=== PATIENT | female | born 1985 | race Caucasian/White ===

== ENCOUNTER 2020-10-30 23:59 | Emergency (ER) | payer MEDICAID ==
[~2020-10-30] VITALS: Ht 172.7 cm; Wt 79.4 kg
[2020-10-31 00:08] VITALS: BP 132/89
--- NOTE | 2020-10-31 00:08 | NUR ---
TO BED AMBULATORY
--- NOTE | 2020-10-31 00:59 | NUR ---
PT BIB SELF FOR C/O 11/14 RIGHT HEEL PAIN WHEN AMBULATING. PT STATES HER RIGHT HEEL HURTS WHEN WALKING BAREFOOT, HOWEVER DOES NOT HURT WHEN SHE WEARS SUPPORTIVE SHOES LIKE CROCS. PT REPORTS MILD PAIN RELIEF WITH TYLENOL. PT ALSO REPORTS APPLYING ICY HOT PATCH TO RIGHT HEEL WITH CONCERNS OF BLUE/GREEN DISCOLORATION POST APPLICATION. UPON VISUAL ASSESSMENT, PT NOTED TO HAVE BLUE/GREEN COLORING ON RIGHT HEEL, HOWEVER ABLE TO BE REMOVED WITH USE OF ALCOHOL PAD WITHOUT DIFFICULTY. PT STILL REPORTING CONCERN OF BLOOD CLOT AND DECREASED CIRCULATION. CAP REFILL <3 SECONDS, SKIN IS WARM/DRY/PINK, DENIES NUMBNESS OR TINGLING, PEDAL PULSES EQUAL AND STRONG BILATERALLY. MED HX: ANEMIA ALLERGIES: NKA
--- NOTE | 2020-10-31 02:22 | NUR ---
ERMD AT BEDSIDE.
[2020-10-31 03:05] VITALS: BP 132/89
--- NOTE | 2020-10-31 03:05 | NUR ---
Patient discharged with v/s stable. Written and verbal after care instructions given and explained. Patient verbalized understanding. Ambulatory with steady gait. All questions addressed prior to discharge. Advised to follow up with PMD.
== END 2020-10-31 03:05 | disposition home or self-care (01) ==
LOC: MED 23:59
DX: M77.31 Calcaneal spur, right foot (principal); D64.9 Anemia, unspecified
CPT/HCPCS: 73650; 99283

== ENCOUNTER 2021-01-26 09:19 | Emergency (ER) | payer MEDICAID ==
[~2021-01-26] VITALS: Ht 152.4 cm; Wt 80.7 kg
[2021-01-26 09:37] VITALS: BP 137/66
--- NOTE | 2021-01-26 10:40 | NUR ---
35/F presents to ED with c/o epigastric pain since 2am. Patient states she woke up with 7/10 epigastric pain, stating she had two episodes of vomiting around 3am. Reports taking Pepto with mild relief, states pain has been constant since. Patient denies N/V/D at this time, denies urinary symptoms, cp, sob, fever, chills or cough.
[2021-01-26] MEDS ORDERED: DICYCLOMINE HCL LIQUID 20 MG, ALUMINUM HYD/MAG/SIMETHICONE 30 ML, LIDOCAINE VISCOUS 2% ... PO ONE ×3 (11:50)
[2021-01-26] MEDS ORDERED: DICYCLOMINE HCL LIQUID 10 MG/5 ML UDC ONE (11:54)
[2021-01-26] MEDS ORDERED: ALUMINUM HYD/MAG/SIMETHICONE 30 ML UDC ONE (11:54)
[2021-01-26 11:58] LABS: BASOPHILS % (AUTO) 0.3 % (0.0-2.0); HEMATOCRIT 41.3 % (36-48); LYMPHOCYTES # (AUTO) 0.4 K/uL (2.5-16.5); MEAN CORPUSCULAR HEMOGLOBIN 29 pg (27-31); MEAN CORPUSCULAR HGB CONC 34 g/dL (33-37); MEAN CORPUSCULAR VOLUME 86.4 fL (80-94); MONOCYTES # (AUTO) 0.2 K/uL (0.8-1.0); MONOCYTES % (AUTO) 1.7 % (1.7-9.3); NEUTROPHILS # (AUTO) 10.2 K/uL (1.8-7.7); PLATELET COUNT (AUTO) 317 K/uL (140-450); RED BLOOD CELL COUNT(AUTO) 4.78 MIL/uL (4.20-5.40); RED CELL DISTRIBUTION WIDTH 14.1 % (11.6-13.7); WHITE BLOOD COUNT (AUTO) 10.9 K/uL (4.8-10.8)
--- NOTE | 2021-01-26 12:00 | NUR ---
PATIENT APPEARS TO BE RESTING WITH EYES CLOSED. ALL NEEDS MET AT THIS TIME.
[2021-01-26 12:08] LABS: APPEARANCE,URINE CLOUDY (CLEAR); BILIRUBIN,URINE NEGATIVE (NEGATIVE); BLOOD, URINE 1+ (NEGATIVE); COLOR,URINE YELLOW (YELLOW); LEUKOCYTE ESTERASE ,URINE 1+ (NEGATIVE); NITRITE, URINE NEGATIVE (NEGATIVE); UGLUCOSE NEGATIVE (NEGATIVE)
[2021-01-26 12:12] LABS: ANION GAP 13.8 (8-16); CARBON DIOXIDE 23.9 mmol/L (21-32); CREATININE 0.7 mg/dL (0.6-1.3); POTASSIUM 3.7 mmol/L (3.5-5.1); TOTAL BILIRUBIN 0.4 mg/dL (0.0-1.0)
[2021-01-26 13:23] LABS: RBC,URINE NONE SEEN /HPF (0-5); URINE AMORPHOUS URATE 2+ /HPF (None Seen); WBC,URINE 0-5 /HPF (0-5)
[2021-01-26] MEDS ORDERED: CEPH-588 PO (14:42)
[2021-01-26 14:53] VITALS: BP 142/75
== END 2021-01-26 14:53 | disposition home or self-care (01) ==
LOC: MED 09:19
DX: R10.13 Epigastric pain (principal)
CPT/HCPCS: 36415; 80053; 81001; 81025; 82150; 83690; 85025; 87086; 99283

== ENCOUNTER 2021-02-17 10:44 | Emergency (ER) | payer MEDICAID ==
[~2021-02-17] VITALS: Ht 152.4 cm; Wt 80.3 kg
[~2021-02-17 10:44] MED LIST: CEPH-588 PO
[2021-02-17 10:49] VITALS: BP 155/92
--- NOTE | 2021-02-17 11:09 | NUR ---
35/F BIB SELF WITH C/O FOUL SMELLING URINE, LOWER BACK PAIN, URGENCY AND FATIGUE SINCE YESTERDAY. DENIES DYSURIA, FEVER OR CHILLS. PT STATES SHE WAS JUST DX WITH A UTI X1 WEEK AGO AND WAS GIVEN KEFELX. PT STATES SHE TOOK THE ENTIRE COURSE OF HER ABX, BUT STARTED TO EXPERINCE UTI SYMPTOMS AGAIN X YESTERDAY. MEDHX: DENIES ALLERGIES: DENIES
--- NOTE | 2021-02-17 11:29 | NUR ---
CLYDE HANDED TO STRATEGY EXECUTION CONSULTANT KALIE
--- NOTE | 2021-02-17 11:30 | NUR ---
SAID BEDSIDE EVALUATING PT
[2021-02-17 11:35] LABS: APPEARANCE,URINE CLEAR (CLEAR); BILIRUBIN,URINE NEGATIVE (NEGATIVE); BLOOD, URINE NEGATIVE (NEGATIVE); COLOR,URINE YELLOW (YELLOW); LEUKOCYTE ESTERASE ,URINE NEGATIVE (NEGATIVE); NITRITE, URINE NEGATIVE (NEGATIVE); UGLUCOSE NEGATIVE (NEGATIVE)
[2021-02-17] MEDS ORDERED: CEPH-588 PO (12:16)
[2021-02-17 12:25] VITALS: BP 155/92
== END 2021-02-17 12:25 | disposition home or self-care (01) ==
LOC: MED 10:44
DX: N39.0 Urinary tract infection, site not specified (principal); D64.9 Anemia, unspecified
CPT/HCPCS: 81003; 81025; 87086; 99283

== ENCOUNTER 2021-02-19 09:06 | Emergency (ER) | payer MEDICAID ==
--- NOTE | 2021-02-19 09:20 | NUR ---
PATIENT LEFT WITHOUT BEING SEEN BY DR. DURBIN. NO FURTHER CARE PROVIDED FOR PATIENT.
--- NOTE | 2021-02-19 09:20 | NUR ---
PT LEFT WITHOUT BEING TRIAGED. DR DURBIN MADE AWARE
== END 2021-02-19 09:20 | disposition left against medical advice (07) ==
LOC: MED 09:06
DX: Z53.21 Procedure and treatment not carried out due to patient leaving prior to being seen by health care provider (principal)

== ENCOUNTER 2021-02-19 22:56 | Emergency (ER) | payer MEDICAID ==
[~2021-02-19] VITALS: Ht 152.4 cm; Wt 81.2 kg
[2021-02-19 23:01] VITALS: BP 155/63
--- NOTE | 2021-02-19 23:01 | NUR ---
TO BED AMBULATORY
[2021-02-19] MEDS ORDERED: LORazepam 0.5 MG TAB PO ONE (23:20)
[2021-02-19 23:45] LABS: BASOPHILS # (AUTO) 0.1 K/uL (0.00-0.22); BASOPHILS % (AUTO) 0.8 % (0.0-2.0); EOSINOPHILS # (AUTO) 0.1 K/uL (0-0.4); EOSINOPHILS % (AUTO) 0.8 % (0.0-4.0); HEMATOCRIT 40.4 % (36-48); HEMOGLOBIN 13.3 g/dL (12.0-16.0); LYMPHOCYTES # (AUTO) 1.9 K/uL (2.5-16.5); LYMPHOCYTES % (AUTO) 26.7 % (20.5-51.1); MEAN CORPUSCULAR HEMOGLOBIN 29 pg (27-31); MEAN CORPUSCULAR HGB CONC 33 g/dL (33-37); MEAN CORPUSCULAR VOLUME 87.7 fL (80-94); MONOCYTES # (AUTO) 0.5 K/uL (0.8-1.0); MONOCYTES % (AUTO) 6.5 % (1.7-9.3); NEUTROPHILS # (AUTO) 4.6 K/uL (1.8-7.7); NEUTROPHILS % (AUTO) 65.2 % (42.2-75.2); PLATELET COUNT (AUTO) 308 K/uL (140-450); RED BLOOD CELL COUNT(AUTO) 4.61 MIL/uL (4.20-5.40); RED CELL DISTRIBUTION WIDTH 13.5 % (11.6-13.7); WHITE BLOOD COUNT (AUTO) 7.1 K/uL (4.8-10.8)
[2021-02-20 00:16] LABS: ALBUMIN 3.6 g/dL (3.4-5.0); ANION GAP 20.2 (8-16); CARBON DIOXIDE 20.1 mmol/L (21-32); CREATININE 0.8 mg/dL (0.6-1.3); POTASSIUM 3.3 mmol/L (3.5-5.1); TOTAL BILIRUBIN 0.5 mg/dL (0.0-1.0)
[2021-02-20 02:12] VITALS: BP 120/72
== END 2021-02-20 01:51 | disposition home or self-care (01) ==
LOC: MED 22:56
DX: R00.2 Palpitations (principal)
CPT/HCPCS: 36415; 80053; 84484; 85025; 93005; 99284

== ENCOUNTER 2021-02-27 17:07 | Emergency (ER) | payer MEDICAID ==
[~2021-02-27] VITALS: Ht 152.4 cm; Wt 78.0 kg
[2021-02-27 17:36] VITALS: BP 151/102
--- NOTE | 2021-02-27 17:44 | NUR ---
PT SENT TO LOBBY
[2021-02-27 18:55] LABS: BASOPHILS # (AUTO) 0.1 K/uL (0.00-0.22); BASOPHILS % (AUTO) 0.9 % (0.0-2.0); EOSINOPHILS % (AUTO) 0.6 % (0.0-4.0); HEMATOCRIT 43.1 % (36-48); HEMOGLOBIN 14.3 g/dL (12.0-16.0); LYMPHOCYTES # (AUTO) 1.5 K/uL (2.5-16.5); LYMPHOCYTES % (AUTO) 24.3 % (20.5-51.1); MEAN CORPUSCULAR HEMOGLOBIN 29 pg (27-31); MEAN CORPUSCULAR HGB CONC 33 g/dL (33-37); MEAN CORPUSCULAR VOLUME 87.8 fL (80-94); MONOCYTES # (AUTO) 0.3 K/uL (0.8-1.0); MONOCYTES % (AUTO) 5.4 % (1.7-9.3); NEUTROPHILS # (AUTO) 4.3 K/uL (1.8-7.7); NEUTROPHILS % (AUTO) 68.8 % (42.2-75.2); PLATELET COUNT (AUTO) 297 K/uL (140-450); RED BLOOD CELL COUNT(AUTO) 4.91 MIL/uL (4.20-5.40); RED CELL DISTRIBUTION WIDTH 13.4 % (11.6-13.7); WHITE BLOOD COUNT (AUTO) 6.2 K/uL (4.8-10.8)
[2021-02-27 19:01] LABS: ANION GAP 9.7 (8-16); CARBON DIOXIDE 26.9 mmol/L (21-32); CREATININE 0.7 mg/dL (0.6-1.3); POTASSIUM 3.6 mmol/L (3.5-5.1)
[2021-02-27] MEDS ORDERED: MELA10CA PO (19:24)
[2021-02-27] MEDS ORDERED: MECL-303 PO (19:24)
--- NOTE | 2021-02-27 19:51 | NUR ---
Patient discharged with v/s stable. Written and verbal after care instructions about sleep studies and dizzziness were given and explained. Patient alert, oriented and verbalized understanding of instructions. Ambulatory with steady gait. All questions addressed prior to discharge. ID band removed. Patient advised to follow up with PMD and get a referral to a specialist. Rx of Meclizine and Melatonin given. Patient educated on indication of medication including possible reaction and side effects. Patient instructed to only use the prescription as needed. Opportunity to ask questions provided and answered.
== END 2021-02-27 19:51 | disposition home or self-care (01) ==
LOC: MED 17:07
DX: R42 Dizziness and giddiness (principal); G47.00 Insomnia, unspecified
CPT/HCPCS: 36415; 80048; 85025; 99283

== ENCOUNTER 2021-02-27 22:02 | Emergency (ER) | payer MEDICAID ==
[~2021-02-27] VITALS: Ht 152.4 cm; Wt 78.0 kg
[~2021-02-27 22:02] MED LIST changes: +MECL-303 PO; +MELA10CA PO
[2021-02-27 22:22] VITALS: BP 154/90
--- NOTE | 2021-02-27 22:25 | NUR ---
TO LOBBY A/W BED AMBULATORY
--- NOTE | 2021-02-28 00:45 | NUR ---
SEEN AND EXAMINED BY KATIUSKA
[2021-02-28 01:10] VITALS: BP 128/79
== END 2021-02-28 01:10 | disposition home or self-care (01) ==
LOC: MED 22:02
DX: R42 Dizziness and giddiness (principal); Z79.899 Other long term (current) drug therapy; Z79.2 Long term (current) use of antibiotics
CPT/HCPCS: 99281

== ENCOUNTER 2021-03-23 20:16 | Emergency (ER) | payer MEDICAID ==
[~2021-03-23] VITALS: Ht 152.4 cm; Wt 75.3 kg
[2021-03-23 20:24] VITALS: BP 130/96
--- NOTE | 2021-03-23 21:32 | NUR ---
PER ARTIE, ADMIT SCAFFOLD SETTER PT LEFT FACILITY AT THIS TIME. PATIENT LEFT WITHOUT BEING SEEN BY DR. SORENSEN. NO FURTHER CARE PROVIDED FOR PATIENT.
== END 2021-03-23 21:32 | disposition left against medical advice (07) ==
LOC: MED 20:16
DX: F41.0 Panic disorder [episodic paroxysmal anxiety] (principal); Z53.21 Procedure and treatment not carried out due to patient leaving prior to being seen by health care provider

== ENCOUNTER 2021-03-23 21:57 | Emergency (ER) | payer MEDICAID ==
[~2021-03-23] VITALS: Ht 152.4 cm; Wt 70.8 kg
[2021-03-23 22:01] VITALS: BP 145/99
--- NOTE | 2021-03-23 23:25 | NUR ---
PT SEEN AND EVALUATED BY DR. MUNSON. NO NURSING INTERVENTIONS PROVIDED.
[2021-03-23 23:45] VITALS: BP 145/99
--- NOTE | 2021-03-23 23:45 | NUR ---
Patient discharged with v/s stable. Written and verbal after care instructions given and explained. Patient verbalized understanding.ARM BAND REMOVED. Ambulatory with steady gait. All questions addressed prior to discharge. Advised to follow up with PMD.
== END 2021-03-23 23:45 | disposition home or self-care (01) ==
LOC: MED 21:57
DX: R00.2 Palpitations (principal); R03.0 Elevated blood-pressure reading, without diagnosis of hypertension; Z79.899 Other long term (current) drug therapy
CPT/HCPCS: 93005; 99283

== ENCOUNTER 2021-09-09 15:44 | Emergency (ER) | payer MEDICAID ==
[~2021-09-09] VITALS: Ht 152.4 cm; Wt 76.2 kg
[2021-09-09 15:57] VITALS: BP 118/85
[2021-09-09 17:00] VITALS: BP 118/85
== END 2021-09-09 17:00 | disposition home or self-care (01) ==
LOC: MED 15:44
DX: L53.9 Erythematous condition, unspecified (principal); Z00.01 Encounter for general adult medical examination with abnormal findings; Z79.899 Other long term (current) drug therapy; Z79.2 Long term (current) use of antibiotics
CPT/HCPCS: 99281

== ENCOUNTER 2021-09-09 18:36 | Emergency (ER) | payer MEDICAID ==
[~2021-09-09] VITALS: Ht 152.4 cm; Wt 76.2 kg
[2021-09-09 18:46] VITALS: BP 139/79
[2021-09-09 19:45] VITALS: BP 139/79
== END 2021-09-09 19:45 | disposition home or self-care (01) ==
LOC: MED 18:36
DX: Z00.00 Encounter for general adult medical examination without abnormal findings (principal); Z79.899 Other long term (current) drug therapy; Z79.2 Long term (current) use of antibiotics
CPT/HCPCS: 81002; 81025; 99281; 99282

== ENCOUNTER 2021-11-29 14:38 | Emergency (ER) | payer MEDICAID ==
[~2021-11-29] VITALS: Ht 152.4 cm; Wt 72.7 kg
[2021-11-29 14:50] VITALS: BP 129/79
--- NOTE | 2021-11-29 14:57 | NUR ---
PT AMBULATED TO BATHROOM WITH STEADY GAIT
--- NOTE | 2021-11-29 15:02 | NUR ---
36 Y/O FEMALE C/O L PELVIC/LLQ ABDOMINAL SHARP PAIN 08/15 X2 MONTHS. DENIES N/V/D. LMP 11/21/21. DENIES VAGINAL BLEEDING/DYSURIA. PER PT THE PELVIC PAIN IS CONSTANT AND THE LLQ ABD PAIN GETS WORSE WHEN SHE IS BENDING DOWN PMH:ANEMIA NKDA MEDS:DENIES
--- NOTE | 2021-11-29 16:39 | NUR ---
YELENA AT BEDSIDE
[2021-11-29] MEDS ORDERED: IBUP-2213 PO (18:41)
[2021-11-29 18:50] VITALS: BP 142/90
== END 2021-11-29 18:50 | disposition home or self-care (01) ==
LOC: MED 14:38
DX: N83.201 Unspecified ovarian cyst, right side (principal)
CPT/HCPCS: 76830; 81002; 81025; 99284; Q0092

== ENCOUNTER 2021-12-11 14:55 | Emergency (ER) | payer MEDICAID ==
[~2021-12-11] VITALS: Ht 152.4 cm; Wt 73.5 kg
[~2021-12-11 14:55] MED LIST changes: +IBUP-2213 PO
[2021-12-11 15:11] VITALS: BP 127/63
--- NOTE | 2021-12-11 15:30 | NUR ---
36 Y/O FEMALE BIB SELF C/O OF LEFT KNEE PAIN X 1 MONTH. PER PT SHE WENT TO HER PHYSICIAN AND WAS IN THE PROCESS TO HAVE A CHECK UP BUT WAS BEING HELD UP BY INSURANCE. PT IS ABLE TO AMBULATE. DENIES ANY INJURY/TRAUMA NKA PMH: ANEMIA
--- NOTE | 2021-12-11 15:45 | NUR ---
SEEN BY ELINOR Rhoades TRIAGE
--- NOTE | 2021-12-11 16:28 | NUR ---
UNABLE TO APPLY. PT INSTRUCTED HOW TO SELF APPLY.
--- NOTE | 2021-12-11 16:31 | NUR ---
Patient discharged with v/s stable. Written and verbal after care instructions ABOUT ACUTE KNEE PAIN given and explained. Patient verbalized understanding. Ambulatory with steady gait. All questions addressed prior to discharge. Advised to follow up with PMD.
== END 2021-12-11 16:31 | disposition home or self-care (01) ==
LOC: MED 14:55
DX: M25.562 Pain in left knee (principal)
CPT/HCPCS: 73562; 99283

== ENCOUNTER 2022-04-02 19:30 | Emergency (ER) | payer MEDICAID ==
[~2022-04-02] VITALS: Ht 152.4 cm; Wt 74.8 kg
[2022-04-02 19:37] VITALS: BP 126/57
[2022-04-02] MEDS ORDERED: ACETAMINOPHEN EXTRA STRENGTH 500 MG TAB PO ONE (22:15)
--- NOTE | 2022-04-02 22:27 | NUR ---
PATIETN TAKEN TO CT
--- NOTE | 2022-04-02 22:50 | NUR ---
PATIENT MEDICATED PER ORDERS. TOLERATED WELL.
[2022-04-02] MEDS ORDERED: NAPR-1704 PO (22:59)
[2022-04-02 23:24] VITALS: BP 125/75
== END 2022-04-02 23:24 | disposition home or self-care (01) ==
LOC: MED 19:30
DX: S09.90XA Unspecified injury of head, initial encounter (principal); Z79.1 Long term (current) use of non-steroidal anti-inflammatories (NSAID); Z79.899 Other long term (current) drug therapy; Z79.2 Long term (current) use of antibiotics; W22.8XXA Striking against or struck by other objects, initial encounter; Y92.89 Other specified places as the place of occurrence of the external cause; Y93.89 Activity, other specified; Y99.8 Other external cause status
CPT/HCPCS: 70450; 81002; 81025; 99284

== ENCOUNTER 2022-06-15 16:52 | Emergency (ER) | payer MEDICAID ==
[~2022-06-15] VITALS: Ht 152.4 cm; Wt 73.9 kg
[~2022-06-15 16:52] MED LIST changes: +NAPR-1704 PO
[2022-06-15 17:01] VITALS: BP 134/84
[2022-06-15] MEDS ORDERED: KETOROLAC 30 MG/ML VIAL IM ONE (17:40)
[2022-06-15] MEDS ORDERED: IBUP-1842 PO (17:41)
[2022-06-15 18:16] VITALS: BP 134/84
--- NOTE | 2022-06-15 18:16 | NUR ---
Patient discharged with v/s stable. Written and verbal after care instructions given and explained. Patient alert, oriented and verbalized understanding of instructions. Ambulatory with steady gait. All questions addressed prior to discharge. ID band removed. Patient advised to follow up with PMD. Rx of ibuprofen (sent) given. Patient educated on indication of medication including possible reaction and side effects. Opportunity to ask questions provided and answered. work note given
--- NOTE | 2022-06-15 18:29 | NUR ---
Note undone in EDM - 06/15/22 at 1830 by MEDPMR Patient discharged with v/s stable. Written and verbal after care instructions given and explained. Patient alert, oriented and verbalized understanding of instructions. Ambulatory with steady gait. All questions addressed prior to discharge. ID band removed. Patient advised to follow up with PMD. Rx of ibuprofen (sent) given. Patient educated on indication of medication including possible reaction and side effects. Opportunity to ask questions provided and answered. work note given
== END 2022-06-15 18:16 | disposition home or self-care (01) ==
LOC: MED 16:52
DX: S29.011A Strain of muscle and tendon of front wall of thorax, initial encounter (principal); S29.012A Strain of muscle and tendon of back wall of thorax, initial encounter; Z79.899 Other long term (current) drug therapy; X58.XXXA Exposure to other specified factors, initial encounter; Y93.01 Activity, walking, marching and hiking; Y92.89 Other specified places as the place of occurrence of the external cause; Y99.0 Civilian activity done for income or pay
CPT/HCPCS: 93005; 99283

== ENCOUNTER 2022-07-12 18:48 | Emergency (ER) | payer MEDICAID ==
[~2022-07-12] VITALS: Ht 152.4 cm; Wt 74.1 kg
[~2022-07-12 18:48] MED LIST changes: +IBUP-1842 PO
[2022-07-12 19:11] VITALS: BP 129/74
--- NOTE | 2022-07-12 19:16 | NUR ---
PT AMB TO BED 6.
--- NOTE | 2022-07-12 19:20 | NUR ---
37YR OLD FEMALE BIB SELF C/O THROAT PAIN XTODAY. PT DENIES SOB OR CP. DENIES FEVER N/V/D. RESP EVEN AND UNLABORED. SKIN WARM AND DRY. SWABS FOR COVID AND FLU COLLECTED. BED AT LOWEST POSITION HOB ELEVATED. NKDA NO MED HX
[2022-07-12] MEDS ORDERED: BENZ-300 PO (19:33)
[2022-07-12] MEDS ORDERED: BENZ150C2 PO (19:33)
[2022-07-12] MEDS ORDERED: CHLSPR MM (19:33)
[2022-07-12] MEDS ORDERED: IBUP-1842 PO (19:33)
--- NOTE | 2022-07-12 19:43 | NUR ---
SWABS COLLECTED AND SENT TO LAB
--- NOTE | 2022-07-12 19:48 | NUR ---
Patient discharged with v/s stable. Written and verbal after care instructions given and explained. Patient alert, oriented and verbalized understanding of instructions. Ambulatory with steady gait. All questions addressed prior to discharge. ID band removed. Patient advised to follow up with PMD. Rx of CEPACOL BENZONATATE PHENOL IBUPROFEN given. Patient educated on indication of medication including possible reaction and side effects. Opportunity to ask questions provided and answered.
== END 2022-07-12 19:48 | disposition home or self-care (01) ==
LOC: MED 18:48
DX: J04.0 Acute laryngitis (principal); Z20.822 Contact with and (suspected) exposure to COVID-19; Z79.899 Other long term (current) drug therapy
CPT/HCPCS: 99283

== ENCOUNTER 2022-12-03 13:09 | Emergency (ER) | payer MEDICAID ==
[~2022-12-03] VITALS: Ht 157.5 cm; Wt 78.9 kg
[~2022-12-03 13:09] MED LIST changes: +BENZ-300 PO; +BENZ150C2 PO; +CHLSPR MM
[2022-12-03 13:16] VITALS: BP 124/78; PULSE 80; RESP 17; TEMP 98; O2SAT 99
--- NOTE | 2022-12-03 13:55 | NUR ---
pt taken to xray via w/c
[2022-12-03 14:11] LABS: APPEARANCE,URINE CLEAR (CLEAR); BILIRUBIN,URINE NEGATIVE (NEGATIVE); BLOOD, URINE NEGATIVE (NEGATIVE); COLOR,URINE YELLOW (YELLOW); LEUKOCYTE ESTERASE ,URINE NEGATIVE (NEGATIVE); NITRITE, URINE NEGATIVE (NEGATIVE); UGLUCOSE NEGATIVE (NEGATIVE)
== END 2022-12-03 14:22 | disposition home or self-care (01) ==
LOC: MED 13:09
DX: M54.6 Pain in thoracic spine (principal); Z79.899 Other long term (current) drug therapy
CPT/HCPCS: 71046; 81003; 81025; 99284

== ENCOUNTER 2023-02-14 02:56 | Emergency (ER) | payer MEDICAID ==
[~2023-02-14] VITALS: Ht 152.4 cm; Wt 68.5 kg
[~2023-02-14 02:56] MED LIST changes: +HYDR25CA1 PO
[2023-02-14 03:08] VITALS: BP 122/79; PULSE 73; RESP 18; TEMP 97.3; O2SAT 100
[2023-02-14] MEDS ORDERED: NAPR-54 PO (03:16)
[2023-02-14 03:17] VITALS: O2SAT 100
== END 2023-02-14 03:19 | disposition home or self-care (01) ==
LOC: MED 02:56
DX: U07.1 COVID-19 (principal); Z79.899 Other long term (current) drug therapy
CPT/HCPCS: 99282

== ENCOUNTER 2023-08-19 14:27 | Emergency (ER) | payer MEDICAID ==
[~2023-08-19] VITALS: Ht 152.4 cm; Wt 73.1 kg
[~2023-08-19 14:27] MED LIST changes: +NAPR-54 PO
[2023-08-19 14:28] VITALS: BP 119/73; PULSE 85; RESP 16; TEMP 98.5; O2SAT 99
[2023-08-19 15:05] LABS: BASOPHILS % (AUTO) 0.2 % (0.0-2.0); EOSINOPHILS % (AUTO) 0.6 % (0.0-4.0); HEMATOCRIT 24.7 % (36-48); HEMOGLOBIN 7.5 g/dL (12.0-16.0); LYMPHOCYTES # (AUTO) 1.2 K/uL (2.5-16.5); LYMPHOCYTES % (AUTO) 20.8 % (20.5-51.1); MEAN CORPUSCULAR HEMOGLOBIN 16 pg (27-31); MEAN CORPUSCULAR HGB CONC 30 g/dL (33-37); MEAN CORPUSCULAR VOLUME 53.6 fL (80-94); MONOCYTES # (AUTO) 0.4 K/uL (0.8-1.0); MONOCYTES % (AUTO) 6.5 % (1.7-9.3); NEUTROPHILS # (AUTO) 4.2 K/uL (1.8-7.7); NEUTROPHILS % (AUTO) 71.9 % (42.2-75.2); PLATELET COUNT (AUTO) 546 K/uL (140-450); RED BLOOD CELL COUNT(AUTO) 4.62 MIL/uL (4.20-5.40); RED CELL DISTRIBUTION WIDTH 19.8 % (11.6-13.7); WHITE BLOOD COUNT (AUTO) 5.9 K/uL (4.8-10.8)
[2023-08-19 15:23] LABS: ANION GAP 12.7 (8-16); CALCIUM 8.8 mg/dL (8.5-10.1); CARBON DIOXIDE 27.2 mmol/L (21-32); CREATININE 0.6 mg/dL (0.6-1.3); POTASSIUM 3.9 mmol/L (3.5-5.1)
[2023-08-19] MEDS ORDERED: IBUP-2213 PO (15:30)
[2023-08-19] MEDS ORDERED: ONDA8TAB87 PO (15:30)
[2023-08-19] MEDS: NACL 0.9% 1,000 ML IV ONE (16:20)
[2023-08-19 17:11] VITALS: BP 117/60; PULSE 80; RESP 18; TEMP 98.3; O2SAT 100
== END 2023-08-19 17:11 | disposition home or self-care (01) ==
LOC: MED 14:27
DX: R53.1 Weakness (principal); R11.0 Nausea; R05.9 Cough, unspecified
CPT/HCPCS: 36415; 80048; 81002; 81025; 85025; 96360; 99283; J7030

== ENCOUNTER 2023-09-06 19:58 | Emergency (ER) | payer MEDICAID ==
[~2023-09-06] VITALS: Ht 152.4 cm; Wt 68.0 kg
[~2023-09-06 19:58] MED LIST changes: -BENZ150C2 PO; +BENZ150C7 PO; +NAPR-337 PO; -NAPR-54 PO; +ONDA8TAB87 PO
[2023-09-06 20:18] VITALS: BP 119/76; PULSE 80; RESP 18; TEMP 98; O2SAT 99
[2023-09-06 20:44] LABS: BASOPHILS # (AUTO) 0.1 K/uL (0.00-0.22); BASOPHILS % (AUTO) 1.5 % (0.0-2.0); EOSINOPHILS # (AUTO) 0.1 K/uL (0-0.4); EOSINOPHILS % (AUTO) 0.9 % (0.0-4.0); HEMATOCRIT 26.4 % (36-48); HEMOGLOBIN 7.8 g/dL (12.0-16.0); LYMPHOCYTES # (AUTO) 1.9 K/uL (2.5-16.5); LYMPHOCYTES % (AUTO) 33.2 % (20.5-51.1); MEAN CORPUSCULAR HEMOGLOBIN 17 pg (27-31); MEAN CORPUSCULAR HGB CONC 30 g/dL (33-37); MEAN CORPUSCULAR VOLUME 57.7 fL (80-94); MONOCYTES # (AUTO) 0.4 K/uL (0.8-1.0); MONOCYTES % (AUTO) 6.6 % (1.7-9.3); NEUTROPHILS # (AUTO) 3.3 K/uL (1.8-7.7); NEUTROPHILS % (AUTO) 57.8 % (42.2-75.2); PLATELET COUNT (AUTO) 546 K/uL (140-450); RED BLOOD CELL COUNT(AUTO) 4.58 MIL/uL (4.20-5.40); WHITE BLOOD COUNT (AUTO) 5.7 K/uL (4.8-10.8)
[2023-09-06 21:02] LABS: CALCIUM 8.8 mg/dL (8.5-10.1); CARBON DIOXIDE 23.7 mmol/L (21-32); CREATININE 0.6 mg/dL (0.6-1.3); POTASSIUM 3.7 mmol/L (3.5-5.1)
[2023-09-06 22:05] VITALS: BP 114/76; PULSE 78; RESP 18; TEMP 98; O2SAT 100
== END 2023-09-06 22:05 | disposition home or self-care (01) ==
LOC: MED 19:58
DX: D64.9 Anemia, unspecified (principal); F41.9 Anxiety disorder, unspecified; Z79.899 Other long term (current) drug therapy
CPT/HCPCS: 36415; 71045; 80048; 84484; 85025; 93005; 99285

== ENCOUNTER 2023-09-14 16:26 | Emergency (ER) | payer MEDICAID ==
[~2023-09-14] VITALS: Ht 152.4 cm; Wt 70.3 kg
[2023-09-14 16:34] VITALS: BP 114/76; PULSE 84; RESP 18; TEMP 97.6; O2SAT 99
[2023-09-14 17:07] LABS: BASOPHILS # (AUTO) 0.1 K/uL (0.00-0.22); BASOPHILS % (AUTO) 2.3 % (0.0-2.0); EOSINOPHILS # (AUTO) 0.1 K/uL (0-0.4); EOSINOPHILS % (AUTO) 2.5 % (0.0-4.0); HEMATOCRIT 27.3 % (36-48); HEMOGLOBIN 8.1 g/dL (12.0-16.0); LYMPHOCYTES # (AUTO) 1.2 K/uL (2.5-16.5); LYMPHOCYTES % (AUTO) 26.7 % (20.5-51.1); MEAN CORPUSCULAR HEMOGLOBIN 17 pg (27-31); MEAN CORPUSCULAR HGB CONC 30 g/dL (33-37); MEAN CORPUSCULAR VOLUME 58.2 fL (80-94); MONOCYTES # (AUTO) 0.4 K/uL (0.8-1.0); MONOCYTES % (AUTO) 8.3 % (1.7-9.3); NEUTROPHILS # (AUTO) 2.8 K/uL (1.8-7.7); NEUTROPHILS % (AUTO) 60.2 % (42.2-75.2); PLATELET COUNT (AUTO) 600 K/uL (140-450); RED BLOOD CELL COUNT(AUTO) 4.69 MIL/uL (4.20-5.40); RED CELL DISTRIBUTION WIDTH 25.5 % (11.6-13.7); WHITE BLOOD COUNT (AUTO) 4.6 K/uL (4.8-10.8)
[2023-09-14 17:19] LABS: ANION GAP 11.9 (8-16); CALCIUM 8.5 mg/dL (8.5-10.1); CARBON DIOXIDE 25.9 mmol/L (21-32); CREATININE 0.6 mg/dL (0.6-1.3); POTASSIUM 3.8 mmol/L (3.5-5.1)
[2023-09-14 17:35] LABS: APPEARANCE,URINE CLEAR (CLEAR); BILIRUBIN,URINE NEGATIVE (NEGATIVE); BLOOD, URINE NEGATIVE (NEGATIVE); COLOR,URINE YELLOW (YELLOW); LEUKOCYTE ESTERASE ,URINE NEGATIVE (NEGATIVE); NITRITE, URINE NEGATIVE (NEGATIVE); PROTEIN,URINE NEGATIVE (NEGATIVE); UGLUCOSE NEGATIVE (NEGATIVE); UROBILINOGEN,URINE 0.2 EU/dL (0.2 - 1)
[2023-09-14] MEDS ORDERED: DOCU-299 PO (20:19)
[2023-09-14] MEDS ORDERED: HYDR-2734 TP (20:19)
== END 2023-09-14 20:30 | disposition home or self-care (01) ==
LOC: MED 16:26
DX: K64.9 Unspecified hemorrhoids (principal); R10.13 Epigastric pain; R42 Dizziness and giddiness; Z79.1 Long term (current) use of non-steroidal anti-inflammatories (NSAID); Z79.2 Long term (current) use of antibiotics; Z79.899 Other long term (current) drug therapy
CPT/HCPCS: 36415; 80048; 81003; 81025; 85025; 99283